=== PATIENT | female | born 1965 | race Caucasian/White ===

== ENCOUNTER 2021-12-18 10:21 | Day surgery (SDC) | payer OTHER ==
[2021-12-15 17:41] VITALS: BMI 28.3
[2021-12-18] MEDS ORDERED: PROPOFOL 20 ML ONE ×4 (11:03)
[2021-12-18 12:03] VITALS: BP 125/79; PULSE 83; TEMP 98
== END 2021-12-18 12:00 | disposition home or self-care (01) ==
LOC: FASU-ENDO 10:21
PROVIDERS: ATTEND Internal Medicine Gastroenterology
PROC: 0DB68ZX Excision of Stomach, Via Natural or Artificial Opening Endoscopic, Diagnostic (ICD-10-PCS; 2021-12-18)
PROC: 0DB48ZX Excision of Esophagogastric Junction, Via Natural or Artificial Opening Endoscopic, Diagnostic (ICD-10-PCS; principal; 2021-12-18 11:18)
DX: K29.60 Other gastritis without bleeding (principal); K31.89 Other diseases of stomach and duodenum; R10.13 Epigastric pain
CPT/HCPCS: 88305-TC; 88342-TC

== ENCOUNTER 2022-01-08 10:14 | Day surgery (SDC) | payer OTHER ==
[2022-01-07 11:53] VITALS: BMI 28.3
[2022-01-08] MEDS ORDERED: PROPOFOL 20 ML ONE ×4 (11:43)
[2022-01-08 12:09] VITALS: TEMP 97.5
[2022-01-08 12:32] VITALS: BP 113/71; PULSE 78
== END 2022-01-08 12:35 | disposition home or self-care (01) ==
LOC: FASU-ENDO 10:14
PROVIDERS: ATTEND Internal Medicine Gastroenterology
PROC: 0DJD8ZZ Inspection of Lower Intestinal Tract, Via Natural or Artificial Opening Endoscopic (ICD-10-PCS; principal; 2022-01-08 11:40)
DX: Z12.11 Encounter for screening for malignant neoplasm of colon (principal); K64.1 Second degree hemorrhoids